=== PATIENT | male | born 1955 | race Caucasian/White ===

== ENCOUNTER 2024-04-30 16:18 | Inpatient (IN) | payer OTHER, BC ==
[2024-04-30] MEDS ORDERED: cefTRIAXone SODIUM 1 GM VIAL ONE (17:41)
[2024-04-30] MEDS ORDERED: DIPHTH,PERTUSS(ACELL),TET 0.5 ML DISP.SYRIN IM ONE (17:41)
[2024-04-30] MEDS ORDERED: VANCOMYCIN 1,000 MG VIAL (RESTRICTED TO ID ONLY) ONE (17:41)
[2024-04-30] MEDS: DIPHTH,PERTUSS(ACELL),TET 0.5 ML DISP.SYRIN IM ONE (18:05)
[2024-04-30] MEDS: CEFTRIAXONE 1,000 MG in DEXTROSE 5%-WATER - 50 ML IVPB ONE (18:20)
[2024-04-30 18:48] LABS: HEMATOCRIT 40.9 % (35.4-49); MCH 30.7 pg (25.7-33.7); MCHC 31.9 g/dl (32.0-35.9); MEAN CELL VOLUME 96.2 fl (80-96); MEAN PLT VOLUME 7.5 fl (7.5-11.1); PLATELET COUNT 166.8 10^3/uL (134-434); RBC 4.25 10^6/uL (4.00-5.60); RDW 15.6 % (11.9-15.9); WHITE BLOOD COUNT 9.7 10^3/uL (4.0-10.8)
[2024-04-30 18:49] LABS: INR 1.01 (0.83-1.09); PROTHROMBIN TIME (PATIENT) 11.5 SEC (9.7-13.0)
[2024-04-30 18:51] LABS: ACTIVATED PTT 29.2 SECONDS (25.2-36.5)
[2024-04-30 18:59] LABS: ALBUMIN 4.1 g/dl (3.4-5.0); BILIRUBIN,TOTAL 1.3 mg/dl (0.2-1); CALCIUM 9.2 mg/dl (8.5-10.1); CREATININE 1.5 mg/dl (0.6-1.3); TOT PROT 7.3 g/dl (6.4-8.2)
[2024-04-30] MEDS: VANCOMYCIN 2,000 MG in DEXTROSE 5%-WATER - 250 ML IVPB ONE (19:28)
[2024-04-30] MEDS ORDERED: AZITHROMYCIN 500 MG TABLET ONE (19:38)
[2024-04-30] MEDS: AZITHROMYCIN 250 MG TABLET PO ONE (19:40)
[2024-04-30 19:42] LABS: PLATELET ESTIMATE ADEQUATE
[2024-04-30 19:54] LABS: ERYTHROCYTE SEDIMENTATION RATE 73 mm/hr (0-20)
[2024-04-30 21:54] VITALS: BMI 43.3
[2024-05-01] MEDS: BACITRACIN ZINC 15 GM TUBE TOPICAL OINTMENT TP SCH (07:29)
[2024-05-01] MEDS ORDERED: VANCOMYCIN HCL 1,500 MG in DEXTROSE 5%-WATER - 250 ML IVPB SCH (08:00)
[2024-05-01 08:03] LABS: CALCIUM 8.8 mg/dl (8.5-10.1); CREATININE 1.1 mg/dl (0.6-1.3); POTASSIUM 4.2 mmol/L (3.5-5.1)
[2024-05-01 08:10] LABS: HEMATOCRIT 38.6 % (35.4-49); HEMOGLOBIN 12.4 G/dL (11.7-16.9); MCH 31.1 pg (25.7-33.7); MCHC 32.2 g/dl (32.0-35.9); MEAN CELL VOLUME 96.7 fl (80-96); MEAN PLT VOLUME 7.3 fl (7.5-11.1); PLATELET COUNT 146.1 10^3/uL (134-434); RBC 3.99 10^6/uL (4.00-5.60); RDW 15.6 % (11.9-15.9); WHITE BLOOD COUNT 7.6 10^3/uL (4.0-10.8)
[2024-05-01] MEDS: BACITRACIN ZINC 15 GM TUBE TOPICAL OINTMENT TP ONE (08:35)
[2024-05-01] MEDS: VANCOMYCIN PREMIX 1.5 GM 1,500 MG/300 ML BAG IVPB SCH ×2 (08:40→20:53)
[2024-05-02 11:41] LABS: HEMATOCRIT 38.5 % (35.4-49); HEMOGLOBIN 12.5 G/dL (11.7-16.9); MCH 30.9 pg (25.7-33.7); MCHC 32.4 g/dl (32.0-35.9); MEAN CELL VOLUME 95.6 fl (80-96); MEAN PLT VOLUME 7.4 fl (7.5-11.1); PLATELET COUNT 140.7 10^3/uL (134-434); RBC 4.03 10^6/uL (4.00-5.60); RDW 14.7 % (11.9-15.9); WHITE BLOOD COUNT 8.1 10^3/uL (4.0-10.8)
[2024-05-02 11:49] LABS: PLATELET ESTIMATE ADEQUATE
[2024-05-02 11:53] LABS: ALBUMIN 3.8 g/dl (3.4-5.0); BILIRUBIN,TOTAL 0.7 mg/dl (0.2-1); CALCIUM 8.9 mg/dl (8.5-10.1); POTASSIUM 4.3 mmol/L (3.5-5.1); TOT PROT 6.7 g/dl (6.4-8.2)
[2024-05-02] MEDS: SACUBITRIL/VALSARTAN 24 MG-26 MG TABLET PO SCH (12:03)
[2024-05-02] MEDS: FUROSEMIDE 40 MG TABLET (FP) PO SCH (14:27)
[2024-05-03] MEDS: ACETAMINOPHEN 325 MG TABLET (FP) PO PRN (09:16)
[2024-05-03 10:02] LABS: BASO % 0.5 % (0-2.0); EOS % 4.1 % (0-4.5); HEMATOCRIT 35.3 % (35.4-49); HEMOGLOBIN 11.8 GM/dL (11.7-16.9); LYMPH % 16.4 % (8-40); MCH 31.8 pg (25.7-33.7); MCHC 33.5 g/dl (32.0-35.9); MEAN CELL VOLUME 94.8 fl (80-96); MEAN PLT VOLUME 6.7 fl (7.5-11.1); MONO % 14.4 % (3.8-10.2); NEUT % 64.6 % (42.8-82.8); PLATELET COUNT 191 10^3/uL (134-434); RBC 3.72 M/mm3 (4.00-5.60); RDW 15.6 % (11.9-15.9); WHITE BLOOD COUNT 6.3 K/mm3 (4.0-10.0)
[2024-05-03 10:11] LABS: ALBUMIN 3.6 g/dl (3.4-5.0); BILIRUBIN,TOTAL 0.6 mg/dl (0.2-1); CALCIUM 8.7 mg/dl (8.5-10.1); CREATININE 0.9 mg/dl (0.6-1.3); POTASSIUM 4.3 mmol/L (3.5-5.1); TOT PROT 6.4 g/dl (6.4-8.2)
[2024-05-03] MEDS: MELATONIN 5 MG TABLETS PO PRN (23:15)
[2024-05-04 09:07] LABS: ALBUMIN 3.5 g/dl (3.4-5.0); BILIRUBIN,TOTAL 0.5 mg/dl (0.2-1); CALCIUM 8.7 mg/dl (8.5-10.1); CREATININE 0.9 mg/dl (0.6-1.3); POTASSIUM 4.4 mmol/L (3.5-5.1); TOT PROT 6.3 g/dl (6.4-8.2)
[2024-05-04 09:31] LABS: BASO % 0.6 % (0-2.0); EOS % 4.7 % (0-4.5); HEMATOCRIT 35.4 % (35.4-49); HEMOGLOBIN 11.9 GM/dL (11.7-16.9); LYMPH % 16.1 % (8-40); MCH 31.6 pg (25.7-33.7); MCHC 33.7 g/dl (32.0-35.9); MEAN CELL VOLUME 93.6 fl (80-96); MEAN PLT VOLUME 6.9 fl (7.5-11.1); MONO % 15.2 % (3.8-10.2); NEUT % 63.4 % (42.8-82.8); PLATELET COUNT 206 10^3/uL (134-434); RBC 3.78 M/mm3 (4.00-5.60); RDW 15.8 % (11.9-15.9); WHITE BLOOD COUNT 5.3 K/mm3 (4.0-10.0)
[2024-05-05 08:17] LABS: ALBUMIN 3.9 g/dl (3.4-5.0); BILIRUBIN,TOTAL 0.5 mg/dl (0.2-1); CALCIUM 9.1 mg/dl (8.5-10.1); POTASSIUM 4.4 mmol/L (3.5-5.1); TOT PROT 7.5 g/dl (6.4-8.2)
[2024-05-05] MEDS: ALLOPURINOL 100 MG TABLET (FP) PO SCH (09:04)
[2024-05-05] MEDS: EMPAGLIFLOZIN (JARDIANCE) 10 MG TABLET PO SCH (09:04)
[2024-05-05 09:41] LABS: BASO % 0.5 % (0-2.0); EOS % 4.1 % (0-4.5); HEMATOCRIT 36.4 % (35.4-49); HEMOGLOBIN 12.5 GM/dL (11.7-16.9); LYMPH % 16.8 % (8-40); MCH 31.9 pg (25.7-33.7); MCHC 34.3 g/dl (32.0-35.9); MEAN CELL VOLUME 93.1 fl (80-96); MEAN PLT VOLUME 6.8 fl (7.5-11.1); MONO % 14.6 % (3.8-10.2); PLATELET COUNT 235 10^3/uL (134-434); RBC 3.91 M/mm3 (4.00-5.60); RDW 15.5 % (11.9-15.9); WHITE BLOOD COUNT 5.7 K/mm3 (4.0-10.0)
[2024-05-06 07:50] LABS: HEMATOCRIT 39.1 % (35.4-49); HEMOGLOBIN 12.8 G/dL (11.7-16.9); MCH 30.8 pg (25.7-33.7); MCHC 32.6 g/dl (32.0-35.9); MEAN CELL VOLUME 94.4 fl (80-96); PLATELET COUNT 186.9 10^3/uL (134-434); RBC 4.14 10^6/uL (4.00-5.60); RDW 14.9 % (11.9-15.9); WHITE BLOOD COUNT 5.6 10^3/uL (4.0-10.8)
[2024-05-06 10:29] LABS: CALCIUM 9.1 mg/dl (8.5-10.1); CREATININE 1.1 mg/dl (0.6-1.3); MAGNESIUM 1.9 mg/dL (1.8-2.4); PHOSPHOROUS 4.3 (2.5-4.9)
[2024-05-06 12:29] LABS: INR 1.04 (0.83-1.09)
[2024-05-07 01:56] VITALS: RESP 18; TEMP 97.3
[2024-05-07 08:29] LABS: HEMATOCRIT 38.7 % (35.4-49); HEMOGLOBIN 12.4 G/dL (11.7-16.9); MCH 30.2 pg (25.7-33.7); MEAN CELL VOLUME 94.2 fl (80-96); MEAN PLT VOLUME 7.3 fl (7.5-11.1); PLATELET COUNT 198.3 10^3/uL (134-434); RBC 4.11 10^6/uL (4.00-5.60); RDW 14.9 % (11.9-15.9); WHITE BLOOD COUNT 5.9 10^3/uL (4.0-10.8)
[2024-05-07 09:07] LABS: CALCIUM 8.8 mg/dl (8.5-10.1); POTASSIUM 3.8 mmol/L (3.5-5.1)
[2024-05-07] MEDS: amLODIPine BESYLATE 10 MG TABLET (FP) PO SCH (10:24)
[2024-05-07] MEDS: ASPIRIN COATED 81 MG TABLET.EC PO SCH (10:24)
[2024-05-07 12:07] VITALS: BP 131/63; PULSE 66
[2024-05-07] MEDS: VANCOMYCIN PREMIX 1.5 GM 1,500 MG/300 ML BAG IVPB ONE (15:40)
== END 2024-05-07 18:30 | disposition home or self-care (01) | DRG 603 ==
LOC: FER 16:18 → FM/S 20:21
PROVIDERS: ADMIT Internal Medicine; ATTEND Internal Medicine
PROC: 05HY33Z Insertion of Infusion Device into Upper Vein, Percutaneous Approach (ICD-10-PCS; principal; 2024-05-07)
DX: L03.116 Cellulitis of left lower limb (principal); I13.0 Hypertensive heart and chronic kidney disease with heart failure and stage 1 through stage 4 chronic kidney disease, or unspecified chronic kidney disease; Z68.41 Body mass index [BMI] 40.0-44.9, adult; M25.562 Pain in left knee; M17.12 Unilateral primary osteoarthritis, left knee; E66.01 Morbid (severe) obesity due to excess calories; G47.33 Obstructive sleep apnea (adult) (pediatric); E78.5 Hyperlipidemia, unspecified; N18.9 Chronic kidney disease, unspecified; E11.9 Type 2 diabetes mellitus without complications; M10.9 Gout, unspecified; I50.9 Heart failure, unspecified
CPT/HCPCS: 36415; 36569; 71046-TC-FY; 72170-TC-FY; 73070-TC-LT-FY; 73090-TC-LT-FY; 73562-TC-LT-FY; 73590-TC-LT-FY; 73610-TC-LT-FY; 73630-TC-LT; 73723-LT; 76882-TC-RT-FY; 80048; 80053; 81003; 81015; 83036; 83605; 83735; 84100; 85025; 85027; 85610; 85651; 85730; 86140; 86850; 86900; 86901; 87040; 87070; 87081; 87186; 87205; 90715; 93005; 93306-TC; 94660; 97116-GP; 97162-GP; 99285-25; G0480

== ENCOUNTER 2024-05-08 13:40 | Day surgery (SDC) | payer OTHER, BC ==
[2024-05-08] MEDS: VANCOMYCIN PREMIX 1.5 GM 1,500 MG/300 ML BAG IVPB ONE (14:03)
[2024-05-08 16:29] VITALS: BP 125/60; PULSE 74; RESP 19; TEMP 98.9
== END 2024-05-08 16:29 | disposition home or self-care (01) ==
LOC: FINFUSION 13:40 → FM/S 13:40 → FINFUSION 16:29
PROVIDERS: ATTEND Internal Medicine Infectious Disease
DX: L03.116 Cellulitis of left lower limb (principal); M17.12 Unilateral primary osteoarthritis, left knee; I50.9 Heart failure, unspecified; E78.5 Hyperlipidemia, unspecified; E11.9 Type 2 diabetes mellitus without complications
CPT/HCPCS: 96365; 96366

== ENCOUNTER 2024-05-09 11:53 | Day surgery (SDC) | payer OTHER, BC ==
[2024-05-09] MEDS: VANCOMYCIN/WATER 1500 MG/300 ML PREMIXED BAG (RESTRICTED TO ID ONLY) IVPB SCH (12:14)
[2024-05-09 13:59] VITALS: BP 143/70; PULSE 62; RESP 18; TEMP 98.1
== END 2024-05-09 14:00 | disposition home or self-care (01) ==
LOC: FM/S 11:53 → FINFUSION 11:53
PROVIDERS: ATTEND Internal Medicine Infectious Disease
DX: L03.116 Cellulitis of left lower limb (principal); M17.12 Unilateral primary osteoarthritis, left knee; I50.9 Heart failure, unspecified; E11.9 Type 2 diabetes mellitus without complications; E78.5 Hyperlipidemia, unspecified
CPT/HCPCS: 96365; 96366

== ENCOUNTER 2024-05-10 12:30 | Day surgery (SDC) | payer OTHER, BC ==
[2024-05-10] MEDS: VANCOMYCIN PREMIX 1.5 GM 1,500 MG/300 ML BAG IVPB ONE (13:30)
[2024-05-10 15:58] VITALS: BP 110/65; PULSE 70; RESP 16; TEMP 97.6
== END 2024-05-10 15:55 | disposition home or self-care (01) ==
LOC: FM/S 12:30 → FINFUSION 12:30
PROVIDERS: ATTEND Internal Medicine Infectious Disease
DX: L03.116 Cellulitis of left lower limb (principal); M17.12 Unilateral primary osteoarthritis, left knee; E11.9 Type 2 diabetes mellitus without complications; E78.5 Hyperlipidemia, unspecified
CPT/HCPCS: 96365; 96366

== ENCOUNTER 2024-05-11 11:47 | Day surgery (SDC) | payer OTHER, BC ==
[2024-05-11 13:30] LABS: CALCIUM 8.6 mg/dl (8.5-10.1); CREATININE 1.5 mg/dl (0.6-1.3); POTASSIUM 4.2 mmol/L (3.5-5.1)
[2024-05-11] MEDS: VANCOMYCIN PREMIX 1.5 GM 1,500 MG/300 ML BAG IVPB ONE (13:40)
[2024-05-11 13:43] LABS: HEMATOCRIT 40.8 % (35.4-49); HEMOGLOBIN 13.1 G/dL (11.7-16.9); MCH 30.1 pg (25.7-33.7); MCHC 32.1 g/dl (32.0-35.9); MEAN CELL VOLUME 93.8 fl (80-96); MEAN PLT VOLUME 7.5 fl (7.5-11.1); PLATELET COUNT 267.3 10^3/uL (134-434); RBC 4.35 10^6/uL (4.00-5.60); RDW 14.6 % (11.9-15.9); WHITE BLOOD COUNT 7.2 10^3/uL (4.0-10.8)
[2024-05-11 13:58] LABS: ERYTHROCYTE SEDIMENTATION RATE 75 mm/hr (0-20)
[2024-05-11 16:02] VITALS: BP 131/63; PULSE 66; RESP 18; TEMP 97.8
== END 2024-05-11 16:02 | disposition home or self-care (01) ==
LOC: FINFUSION 11:47 → FM/S 11:54 → FINFUSION 16:02
PROVIDERS: ATTEND Internal Medicine Infectious Disease
DX: L03.116 Cellulitis of left lower limb (principal); M17.12 Unilateral primary osteoarthritis, left knee; E11.9 Type 2 diabetes mellitus without complications; I11.0 Hypertensive heart disease with heart failure; I50.9 Heart failure, unspecified
CPT/HCPCS: 36415; 80048; 85027; 85651; 86140; 96365; 96366; G0480

== ENCOUNTER 2024-05-13 12:16 | Day surgery (SDC) | payer OTHER, BC ==
[2024-05-13] MEDS: VANCOMYCIN PREMIX 1.5 GM 1,500 MG/300 ML BAG IVPB ONE (16:04)
== END 2024-05-13 16:10 | disposition home or self-care (01) ==
LOC: FINFUSION 12:16 → FM/S 12:18 → FINFUSION 16:10
PROVIDERS: ATTEND Internal Medicine Infectious Disease
DX: Z53.8 Procedure and treatment not carried out for other reasons (principal); L03.116 Cellulitis of left lower limb
CPT/HCPCS: 96365; G0480

== ENCOUNTER 2024-05-14 12:00 | Day surgery (SDC) | payer OTHER, BC ==
[2024-05-14] MEDS: VANCOMYCIN/WATER FOR INJ (PEG) 1,000 MG/200 ML BAG IVPB ONE (12:40)
[2024-05-14 14:22] VITALS: BP 120/61; PULSE 70; RESP 18; TEMP 97
== END 2024-05-14 14:22 | disposition home or self-care (01) ==
LOC: FINFUSION 12:00 → FM/S 12:02 → FINFUSION 14:22
PROVIDERS: ATTEND Internal Medicine Infectious Disease
DX: L03.116 Cellulitis of left lower limb (principal); M17.12 Unilateral primary osteoarthritis, left knee; I11.0 Hypertensive heart disease with heart failure; E11.9 Type 2 diabetes mellitus without complications; E78.5 Hyperlipidemia, unspecified
CPT/HCPCS: 96365; 96366

== ENCOUNTER 2024-05-15 12:19 | Day surgery (SDC) | payer OTHER, BC ==
[2024-05-15] MEDS: VANCOMYCIN/WATER FOR INJ (PEG) 1,000 MG/200 ML BAG IVPB ONE (12:41)
[2024-05-15 12:55] VITALS: TEMP 98.3
[2024-05-15 14:51] VITALS: BP 116/68; PULSE 82; RESP 16
== END 2024-05-15 14:55 | disposition home or self-care (01) ==
LOC: FINFUSION 12:19 → FM/S 12:20 → FINFUSION 14:55
PROVIDERS: ATTEND Internal Medicine Infectious Disease
DX: L03.116 Cellulitis of left lower limb (principal); M17.12 Unilateral primary osteoarthritis, left knee; E11.9 Type 2 diabetes mellitus without complications; E78.5 Hyperlipidemia, unspecified
CPT/HCPCS: 96365; 96366

== ENCOUNTER 2024-05-16 12:24 | Day surgery (SDC) | payer OTHER, BC ==
[2024-05-16] MEDS: VANCOMYCIN/WATER FOR INJ (PEG) 1,000 MG/200 ML BAG IVPB SCH (12:49)
[2024-05-16 12:50] VITALS: BP 124/68; TEMP 97.9
[2024-05-16 13:52] VITALS: PULSE 72; RESP 18
== END 2024-05-16 13:53 | disposition home or self-care (01) ==
LOC: FINFUSION 12:24 → FM/S 12:25 → FINFUSION 13:53
PROVIDERS: ATTEND Internal Medicine Infectious Disease
DX: L03.116 Cellulitis of left lower limb (principal); M17.12 Unilateral primary osteoarthritis, left knee; E11.9 Type 2 diabetes mellitus without complications; E78.5 Hyperlipidemia, unspecified
CPT/HCPCS: 96365

== ENCOUNTER 2024-05-17 11:06 | Day surgery (SDC) | payer OTHER, BC ==
[2024-05-17] MEDS: VANCOMYCIN/WATER FOR INJ (PEG) 1,000 MG/200 ML BAG IVPB ONE (13:43)
[2024-05-17 15:08] VITALS: BP 138/60; PULSE 78; RESP 16; TEMP 98.8
== END 2024-05-17 15:08 | disposition home or self-care (01) ==
LOC: FM/S 11:06 → FINFUSION 11:06
PROVIDERS: ATTEND Internal Medicine Infectious Disease
DX: L03.116 Cellulitis of left lower limb (principal); M17.12 Unilateral primary osteoarthritis, left knee; E11.9 Type 2 diabetes mellitus without complications; E78.5 Hyperlipidemia, unspecified
CPT/HCPCS: 96365; 96366; 96367; G0480

== ENCOUNTER 2024-05-18 12:22 | Day surgery (SDC) | payer OTHER, BC ==
[2024-05-18] MEDS: VANCOMYCIN/WATER FOR INJ (PEG) 1,000 MG/200 ML BAG IVPB ONE (13:25)
[2024-05-18 13:49] VITALS: RESP 18; TEMP 97.8
[2024-05-18 14:12] LABS: CALCIUM 9.3 mg/dl (8.5-10.1); CREATININE 1.4 mg/dl (0.6-1.3); POTASSIUM 4.8 mmol/L (3.5-5.1)
[2024-05-18 14:23] VITALS: BP 134/67; PULSE 73
[2024-05-18 15:22] LABS: HEMOGLOBIN 12.7 GM/dL (11.7-16.9); MCHC 34.2 g/dl (32.0-35.9); MEAN CELL VOLUME 93.5 fl (80-96); MEAN PLT VOLUME 7.3 fl (7.5-11.1); PLATELET COUNT 262 10^3/uL (134-434); RBC 3.96 M/mm3 (4.00-5.60); RDW 15.5 % (11.9-15.9)
[2024-05-18 15:59] LABS: ERYTHROCYTE SEDIMENTATION RATE 66 mm/hr (0-20)
== END 2024-05-18 14:23 | disposition home or self-care (01) ==
LOC: FINFUSION 12:22 → FM/S 12:31 → FINFUSION 14:23
PROVIDERS: ATTEND Internal Medicine Infectious Disease
DX: L03.116 Cellulitis of left lower limb (principal); M17.12 Unilateral primary osteoarthritis, left knee; E11.9 Type 2 diabetes mellitus without complications; E78.5 Hyperlipidemia, unspecified
CPT/HCPCS: 36415; 80048; 85025; 85651; 86140; 96365

== ENCOUNTER 2024-05-19 12:36 | Day surgery (SDC) | payer OTHER, BC ==
[2024-05-19] MEDS: VANCOMYCIN/WATER FOR INJ (PEG) 1,000 MG/200 ML BAG IVPB ONE (13:15)
[2024-05-19 15:21] VITALS: BP 138/75; PULSE 73; RESP 16; TEMP 98.6
== END 2024-05-19 15:21 | disposition home or self-care (01) ==
LOC: FINFUSION 12:36 → FM/S 12:37 → FINFUSION 15:21
PROVIDERS: ATTEND Internal Medicine Infectious Disease
DX: L03.116 Cellulitis of left lower limb (principal); M17.12 Unilateral primary osteoarthritis, left knee; E11.9 Type 2 diabetes mellitus without complications; E78.5 Hyperlipidemia, unspecified
CPT/HCPCS: 96365; 96366

== ENCOUNTER 2024-05-20 12:15 | Day surgery (SDC) | payer OTHER, BC ==
[2024-05-20] MEDS ORDERED: VANCOMYCIN/WATER FOR INJ (PEG) 1,000 MG/200 ML BAG IVPB ONE (13:00)
[2024-05-20] MEDS: VANCOMYCIN/WATER FOR INJ (PEG) 1,000 MG/200 ML BAG IVPB ONE (14:15)
[2024-05-20 16:11] VITALS: BP 134/88; PULSE 70; RESP 17; TEMP 98.1
== END 2024-05-20 16:14 | disposition home or self-care (01) ==
LOC: FINFUSION 12:15 → FM/S 14:10 → FINFUSION 16:14
PROVIDERS: ATTEND Internal Medicine Infectious Disease
DX: L03.116 Cellulitis of left lower limb (principal); M17.12 Unilateral primary osteoarthritis, left knee; E11.9 Type 2 diabetes mellitus without complications; E78.5 Hyperlipidemia, unspecified
CPT/HCPCS: 96365; 96366; G0480

== ENCOUNTER 2024-05-21 12:29 | Day surgery (SDC) | payer OTHER, BC ==
[2024-05-21] MEDS: VANCOMYCIN/WATER FOR INJ (PEG) 1,000 MG/200 ML BAG IVPB ONE (13:09)
[2024-05-21 15:36] VITALS: BP 143/70; PULSE 67; RESP 16; TEMP 97.9
== END 2024-05-21 15:00 | disposition home or self-care (01) ==
LOC: FINFUSION 12:29 → FM/S 12:31 → FINFUSION 15:00
PROVIDERS: ATTEND Internal Medicine Infectious Disease
DX: L03.116 Cellulitis of left lower limb (principal); M17.12 Unilateral primary osteoarthritis, left knee; E78.5 Hyperlipidemia, unspecified; E11.9 Type 2 diabetes mellitus without complications; I10 Essential (primary) hypertension
CPT/HCPCS: 96365

== ENCOUNTER 2024-05-22 12:37 | Day surgery (SDC) | payer OTHER, BC ==
[2024-05-22] MEDS: VANCOMYCIN/WATER FOR INJ (PEG) 1,000 MG/200 ML BAG IVPB ONE (13:21)
[2024-05-22 15:31] VITALS: BP 137/72; PULSE 74; RESP 18; TEMP 98.5
== END 2024-05-22 15:32 | disposition home or self-care (01) ==
LOC: FINFUSION 12:37 → FM/S 12:39 → FINFUSION 15:32
PROVIDERS: ATTEND Internal Medicine Infectious Disease
DX: L03.116 Cellulitis of left lower limb (principal); M17.12 Unilateral primary osteoarthritis, left knee; E78.5 Hyperlipidemia, unspecified; E11.9 Type 2 diabetes mellitus without complications; I10 Essential (primary) hypertension
CPT/HCPCS: 96365; 96366

== ENCOUNTER 2024-05-23 12:33 | Day surgery (SDC) | payer OTHER, BC ==
[2024-05-23] MEDS: VANCOMYCIN/WATER FOR INJ (PEG) 1,000 MG/200 ML BAG IVPB SCH (13:07)
[2024-05-23 13:17] VITALS: PULSE 72; RESP 18; TEMP 99
[2024-05-23 14:37] VITALS: BP 134/68
== END 2024-05-23 14:37 | disposition home or self-care (01) ==
LOC: FINFUSION 12:33 → FM/S 12:34 → FINFUSION 14:37
PROVIDERS: ATTEND Internal Medicine Infectious Disease
DX: L03.116 Cellulitis of left lower limb (principal); M17.12 Unilateral primary osteoarthritis, left knee; E78.5 Hyperlipidemia, unspecified; I10 Essential (primary) hypertension; E11.9 Type 2 diabetes mellitus without complications
CPT/HCPCS: 96365; 96366

== ENCOUNTER 2024-05-24 12:18 | Day surgery (SDC) | payer OTHER, BC ==
[2024-05-24] MEDS: VANCOMYCIN/WATER FOR INJ (PEG) 1,000 MG/200 ML BAG IVPB ONE (15:26)
[2024-05-24 16:56] VITALS: BP 141/58; PULSE 73; RESP 18; TEMP 98.1
== END 2024-05-24 16:57 | disposition home or self-care (01) ==
LOC: FINFUSION 12:18 → FM/S 12:18 → FINFUSION 16:57
PROVIDERS: ATTEND Internal Medicine Infectious Disease
DX: L03.116 Cellulitis of left lower limb (principal); M17.12 Unilateral primary osteoarthritis, left knee; I10 Essential (primary) hypertension; E78.5 Hyperlipidemia, unspecified; E11.9 Type 2 diabetes mellitus without complications
CPT/HCPCS: 96365; G0480

== ENCOUNTER 2024-05-25 12:14 | Day surgery (SDC) | payer OTHER, BC ==
[2024-05-25] MEDS: VANCOMYCIN/WATER FOR INJ (PEG) 1,000 MG/200 ML BAG IVPB ONE (12:45)
[2024-05-25 13:04] LABS: HEMATOCRIT 40.5 % (35.4-49); HEMOGLOBIN 13.1 G/dL (11.7-16.9); MCH 31.4 pg (25.7-33.7); MCHC 32.4 g/dl (32.0-35.9); MEAN CELL VOLUME 96.9 fl (80-96); MEAN PLT VOLUME 7.4 fl (7.5-11.1); RBC 4.18 10^6/uL (4.00-5.60); RDW 15.5 % (11.9-15.9)
[2024-05-25 13:37] LABS: ANION GAP 8 mmol/L (4-13); CALCIUM 9.3 mg/dl (8.5-10.1); CHLORIDE 98 mmol/L (98-107); CO2 26 mmol/L (21-32); CREATININE 1.2 mg/dl (0.6-1.3); GLUCOSE,RANDOM 140 mg/dl (74-106); POTASSIUM 4.8 mmol/L (3.5-5.1); SODIUM 132 mmol/L (136-145)
[2024-05-25 13:47] LABS: ERYTHROCYTE SEDIMENTATION RATE 48 mm/hr (0-20)
[2024-05-25 14:30] VITALS: BP 115/65; PULSE 72; RESP 19; TEMP 97.7
[2024-05-25 14:41] LABS: PLATELET COUNT 157.7 10^3/uL (134-434)
== END 2024-05-25 14:25 | disposition home or self-care (01) ==
LOC: FINFUSION 12:14 → FM/S 12:17 → FINFUSION 14:25
PROVIDERS: ATTEND Internal Medicine Infectious Disease
DX: L03.116 Cellulitis of left lower limb (principal); M17.12 Unilateral primary osteoarthritis, left knee; I10 Essential (primary) hypertension; E78.5 Hyperlipidemia, unspecified; E11.9 Type 2 diabetes mellitus without complications
CPT/HCPCS: 36415; 80048; 85027; 85651; 86140; 96365; 96366

== ENCOUNTER 2024-05-26 12:23 | Day surgery (SDC) | payer OTHER, BC ==
[2024-05-26] MEDS: VANCOMYCIN/WATER FOR INJ (PEG) 1,000 MG/200 ML BAG IVPB ONE (12:51)
[2024-05-26 13:45] VITALS: TEMP 97.9
[2024-05-26 14:12] VITALS: BP 134/67; PULSE 73; RESP 18
== END 2024-05-26 14:14 | disposition home or self-care (01) ==
LOC: FINFUSION 12:23 → FM/S 12:24 → FINFUSION 14:14
PROVIDERS: ATTEND Internal Medicine Infectious Disease
DX: L03.116 Cellulitis of left lower limb (principal); M17.12 Unilateral primary osteoarthritis, left knee
CPT/HCPCS: 96365

== ENCOUNTER 2024-05-27 12:36 | Day surgery (SDC) | payer OTHER, BC ==
[2024-05-27] MEDS: VANCOMYCIN/WATER FOR INJ (PEG) 1,000 MG/200 ML BAG IVPB ONE (13:19)
[2024-05-27 16:29] VITALS: BP 119/63; PULSE 74; RESP 16; TEMP 98.4
== END 2024-05-27 15:50 | disposition home or self-care (01) ==
LOC: FINFUSION 12:36 → FM/S 12:38 → FINFUSION 15:50
PROVIDERS: ATTEND Internal Medicine Infectious Disease
DX: L03.116 Cellulitis of left lower limb (principal); M17.12 Unilateral primary osteoarthritis, left knee
CPT/HCPCS: 96365; 96366

== ENCOUNTER 2024-05-28 09:37 | Day surgery (SDC) | payer OTHER, BC ==
[2024-05-28] MEDS: VANCOMYCIN/WATER FOR INJ (PEG) 1,000 MG/200 ML BAG IVPB ONE (13:46)
[2024-05-28 16:25] VITALS: BP 113/69; PULSE 67; RESP 16; TEMP 98.2
== END 2024-05-28 16:20 | disposition home or self-care (01) ==
LOC: FINFUSION 09:37 → FM/S 10:26 → FINFUSION 16:20
PROVIDERS: ATTEND Internal Medicine Infectious Disease
DX: L03.116 Cellulitis of left lower limb (principal); M17.12 Unilateral primary osteoarthritis, left knee
CPT/HCPCS: 96365; 96366; G0480

== ENCOUNTER 2024-05-29 12:39 | Day surgery (SDC) | payer OTHER, BC ==
[2024-05-29] MEDS ORDERED: ERTAPENEM SODIUM 1 GM in SODIUM CHLORIDE 50 ML IVPB ONE (13:00)
[2024-05-29] MEDS: VANCOMYCIN/WATER FOR INJ (PEG) 1,000 MG/200 ML BAG IVPB ONE (13:15)
[2024-05-29 16:06] VITALS: BP 115/78; PULSE 65; RESP 18; TEMP 98.5
== END 2024-05-29 16:06 | disposition home or self-care (01) ==
LOC: FINFUSION 12:39 → FM/S 12:40 → FINFUSION 16:06
PROVIDERS: ATTEND Internal Medicine Infectious Disease
DX: L03.116 Cellulitis of left lower limb (principal); M17.12 Unilateral primary osteoarthritis, left knee
CPT/HCPCS: 96365; 96366